=== PATIENT | female | born 1960 | race African-American/Black ===

== ENCOUNTER 2016-03-19 07:31 | Observation (INO) | payer OTHER ==
[~2016-03-19] VITALS: Ht 170.2 cm; Wt 90.7 kg
--- NOTE | ~2016-03-19 | CARDNUC ---
[facility] [employer] [place] [address] CARDIAC NUCLEAR IMAGING REPORT Name: KATHRIN DANIELS Room #: 214-P [facility] [place] ..#: [id number] Admission: 03/19/16 Attend Phys: Sheila Shirley Discharge: 03/20/16 Date of : 62 Date of Service: 03/20/16 1115 Report #: [id number] THIS REPORT FOR: //name// CC: FAM physician/PCP Sheila Kapadia DATE OF SERVICE: 03/19/2016 Vasodilator Gated SPECT Myocardial Perfusion Imaging: Regadenoson. Referring physician: Sheila Kapadia MD. Referring utilization supervisor: None. Date of study: 03/19/2016. Indications for study: Chest pain and dyspnea. Risk factors: Age. Cardiac history: None. Cardiac medications: Lisinopril. Gender: Female. PROCEDURE: The patient was given 0.4 mg of intravenous regadenoson (Lexiscan) administered over approximately 20 seconds. The patient did not complain of chest discomfort during the infusion. At baseline the blood pressure was 166/104 and the pulse was 80; at completion of the regadenoson infusion the blood pressure was 175/100 and the pulse was 103. At completion of the recovery phase the blood pressure was 174/102 and the pulse was 87. The baseline EKG demonstrated normal sinus rhythm, poor R-wave progression, and nonspecific ST-T wave changes. The EKG at completion of the administration of regadenoson demonstrated no changes. Gated-SPECT myocardial perfusion imaging was performed using a one-day imaging protocol and a technetium isotope technique. The 12.0 mCi of Tc-99m sestamibi was administered intravenously at rest; 36.0 mCi of Tc-99m sestamibi was administered intravenously within 10 seconds of the completion of the administration of regadenoson. Imaging was obtained in the supine position and when feasible, adjunctive stress imaging in the prone position was obtained. FINDINGS: The overall quality of the study was satisfactory. There was evidence of attenuation artifact. There was no evidence of abnormal extracardiac uptake of the radionuclide. The baseline imaging study demonstrated homogenous uptake of isotope in segments of myocardium except in the apex and surrounding region which was photopenic. The imaging obtained following the administration of the vasodilator [address] [address] CARDIAC NUCLEAR IMAGING REPORT Name: JEREMIAHKATHRINBeverley GALICIA Room #: 214-P [facility] [place] M.R.#: [id number] Admission: 03/19/16 Attend Phys: Sheila Shirley Discharge: 03/20/16 Date of : 62 Date of Service: 03/20/16 1115 Report #: [id number] demonstrated no significant changes. On gated analysis the left ventricle demonstrated normal contractility. The gated ejection fraction was 68%. The left ventricle was of normal size at rest and did not dilate with administration of the vasodilator. IMPRESSIONS: 1. CLINICAL RESPONSE: Adequate response to intravenous Lexiscan. 2. STRESS EKG RESPONSE: Inadequate heart rate for an ECG diagnosis. 3. MYOCARDIAL PERFUSION STUDY: Homogenous uptake of isotope in all segments, except for a region of fixed photopenia without wall motion abnormalities, suggestive of attenuation. 4. FUNCTIONAL CAPACITY: Not assessed. CONCLUSIONS: Low risk study. <ELECTRONICALLY SIGNED> By: Fransisco Medel MD 03/20/162010 1115 1210 Fransisco Medel MD /nt
--- NOTE | ~2016-03-19 | EKG ---
[address] [address] ELECTROCARDIOGRAM REPORT Name: JEREMIAHKATHRINBeverley GALICIA Room #: [facility]..#: [id number] Admission: Attend Phys: Discharge: Date of : 62 Report #: [id number] THIS REPORT FOR: //name// [facility] ED Test Date: 2016-03-19 Test Time: 07:35:42 Pat Name: KATHRIN DANIELS Department: Room: Gender: F Machinery Engineer: rand : 1960 Requested By: Emi Farmer Order Number: [id number] MD: Magnus Hector Measurements Intervals Bim Rate: 102 P: 31 GA: 175 QRS: -11 QRSD: 92 T: 43 QT: 354 QTc: 462 Interpretive Statements Sinus tachycardia No previous ECG available for comparison Electronically Signed On 03-19-2016 8:24:13 [employer] by Magnus Hector [email or web address] <ELECTRONICALLY SIGNED> By: Magnus Hector MD 03/19/16 0824 0735 0735 Magnus Hector MD /EPI
[2016-03-19 07:32] VITALS: BP 167/121
[2016-03-19] MEDS ORDERED: LISINOPRIL10 MG PO (07:57)
[2016-03-19 08:10] LABS: ABSOLUTE NEUTROPHILS 2.7 thou/uL (1.4-8.2); BASOPHILS 1.1 % (0.0-2.0); EOSINOPHILS 2.1 % (0.0-3.0); HEMATOCRIT 35.8 % (37.0-47.0); HEMOGLOBIN 11.7 gm/dL (12.0-15.0); MCH 25.9 pg (26.0-34.0); MCHC 32.6 % (28.0-37.0); MCV 79.3 fL (80.0-100.0); MONOCYTES 7.3 % (1.0-8.0); PLATELET COUNT 151 thou/uL (150-400); POLYS 47.5 % (36.0-66.0); RBC 4.52 mil/uL (4.20-5.00); RDW 13.3 % (10.5-14.5); WBC 5.8 thou/uL (4.0-11.0)
[2016-03-19 08:11] LABS: MANUAL DIFF NO
[2016-03-19 08:22] LABS: ANION GAP 8 mmol/L (7-16); BUN 12 mg/dL (7-18); CALCIUM 9.4 mg/dL (8.5-10.1); CHLORIDE 105 mmol/L (98-107); CO2 27 mmol/L (21-32); GLUCOSE 101 mg/dL (70-99); SODIUM 140 mmol/L (136-145)
[2016-03-19 08:31] LABS: TROPONIN-I < 0.04 ng/mL (<0.04-0.07)
[2016-03-19 09:42] LABS: CHOLESTEROL 184 mg/dL (<200); HDL CHOLESTEROL 44 mg/dL (>40); LDL CHOLESTEROL 113 mg/dL (<100); TC:HDL 4.2 Ratio (Not establshd); TRIGLYCERIDE 138 mg/dL (<150); VLDL 28 mg/dL (<40)
[2016-03-19 12:21] VITALS: BP 170/92
[2016-03-19 15:55] VITALS: BP 146/89
[2016-03-19 20:18] VITALS: BP 151/100
[2016-03-20 00:02] VITALS: BP 123/73
[2016-03-20 03:25] VITALS: BP 137/87
[2016-03-20 08:26] VITALS: BP 152/99
[2016-03-20] MEDS ORDERED: BUTALB-APAP-CA1 EACH PO (11:34)
[2016-03-20 11:50] VITALS: BP 151/103
[2016-03-20 13:04] VITALS: BP 151/103
[2016-03-20 21:57] VITALS: BP 151/103
== END 2016-03-20 14:24 | disposition home or self-care (01) ==
LOC: ER 07:31 → EROBS 09:05 → 2N 12:22
PROVIDERS: Emergency Medicine; Hospitalist
DX: R07.89 Other chest pain (principal); I10 Essential (primary) hypertension; G43.909 Migraine, unspecified, not intractable, without status migrainosus; Z79.899 Other long term (current) drug therapy